=== PATIENT | male | born 2000 | race African-American/Black ===

== ENCOUNTER 2023-08-21 22:37 | Emergency (ER) | payer MEDICAID ==
[~2023-08-21] VITALS: Ht 182.9 cm; Wt 70.0 kg
[2023-08-21 22:47] VITALS: BP 145/99; PULSE 98; RESP 16; TEMP 98.2; O2SAT 98
== END 2023-08-21 23:44 | disposition home or self-care (01) ==
LOC: ER 22:37
DX: F22 Delusional disorders (principal)
CPT/HCPCS: 99283

== ENCOUNTER 2023-09-11 03:20 | Emergency (ER) | payer MEDICAID ==
[~2023-09-11] VITALS: Ht 182.9 cm; Wt 73.0 kg
[2023-09-11 03:25] VITALS: O2SAT 100
[2023-09-11] MEDS ORDERED: OLANZAPINE 5MG TABLET PO SCH (04:45)
[2023-09-11] MEDS ORDERED: LORAZEPAM 1MG TABLET PO ONE (04:45)
[2023-09-11 04:49] LABS: CLARITY URINE CLEAR (CLEAR); COLOR URINE DARK YELLOW (YELLOW); GLUCOSE URINE NEGATIVE (NEGATIVE); KETONES URINE 1+ (NEGATIVE); LEUKOCYTE ESTERASE URINE NEGATIVE (NEGATIVE); NITRITE URINE NEGATIVE (NEGATIVE); OCCULT BLOOD URINE NEGATIVE (NEGATIVE); PROTEIN URINE TRACE (NEGATIVE); SPECIFIC GRAVITY URINE 1.029 (1.005-1.030)
[2023-09-11 04:57] LABS: *AMPHETAMINES SCREEN URINE NEGATIVE (NEGATIVE); *BARBITURATES SCREEN URINE NEGATIVE (NEGATIVE); *BENZODIAZEPINES SCREEN URINE NEGATIVE (NEGATIVE); *COCAINE SCREEN URINE PRESUMPTIVE POSITIVE (NEGATIVE); CANNABINOID URINE SCREEN PRESUMPTIVE POSITIVE (NEGATIVE); ECSTASY MDMA SCREEN URINE NEGATIVE (NEGATIVE); METHADONE URINE SCREEN Neg (NEGATIVE); OPIATES URINE SCREEN NEGATIVE (NEGATIVE); PHENCYCLIDINE URINE SCREEN NEGATIVE (NEGATIVE)
[2023-09-11 05:15] LABS: BASOPHILS % 0.3 % (0.0-2.0); HEMATOCRIT. 44.6 % (42.0-52.0); HEMOGLOBIN. 14.9 g/dL (14.0-18.0); LYMPHOCYTES % 14.9 % (20.0-50.0); MEAN CORPUSCULAR HEMOGLOBIN 32.2 pg (28.0-32.0); MEAN CORPUSCULAR HGB CONC 33.4 g/dL (31.0-37.0); MEAN CORPUSCULAR VOLUME 96.5 fL (80.0-94.0); MEAN PLATELET VOLUME 7.9 fl (7.4-10.4); MONOCYTES % 7.6 % (2.0-8.0); NEUTROPHILS % 76.2 % (40.0-76.0); PLATELET 228 x1000/uL (130-400); RED BLOOD CELL COUNT 4.62 mill/uL (4.7-6.1); RED CELL DISTRIBUTION WIDTH 12.9 % (11.6-14.6); WHITE BLOOD COUNT 5.8 x1000/uL (4.5-11.0)
[2023-09-11 05:43] LABS: ACETAMINOPHEN < 2 ug/mL (10-30); ALANINE AMINOTRANSFERASE 16 IU/L (10-49); ALBUMIN 4.8 g/dL (3.2-4.8); ASPARTATE AMINOTRANSFERASE 19 IU/L (<34); BILIRUBIN TOTAL 1.1 mg/dL (0.1-1.0); CALCIUM 9.6 mg/dL (8.7-10.4); CARBON DIOXIDE 26 mEq/L (21-32); CHLORIDE 106 mEq/L (98-107); CREATININE 0.9 mg/dL (0.6-1.3); GLUCOSE 98 mg/dL (70-105); POTASSIUM 4.1 mEq/L (3.5-5.1); PROTEIN TOTAL 7.8 g/dL (6.0-8.3); SODIUM 138 mEq/L (136-145); UREA NITROGEN BLOOD 7 mg/dL (9-23)
[2023-09-11 05:46] LABS: AMMONIA <10 uMol/L (<32)
[2023-09-11 06:01] LABS: ETHANOL BLOOD < 10 mg/dL (<10)
[2023-09-11 06:01] LABS: BACTERIA URINE 1+; RBC URINE NONE SEEN /hpf (0-2); SQUAMOUS EPITHELIAL CELL URINE FEW /lpf (RARE/1+); WBC URINE NONE SEEN /hpf (0-2)
[2023-09-11 06:02] LABS: CALCIUM OXALATE CRYSTALS URINE 1+ /lpf; MUCUS URINE 1+ /lpf (NONE/TRACE)
[2023-09-11 09:30] VITALS: BP 122/80; PULSE 84; RESP 18; TEMP 98.3
== END 2023-09-11 09:30 | disposition home or self-care (01) ==
LOC: ER 03:48
DX: F14.90 Cocaine use, unspecified, uncomplicated (principal); Z20.822 Contact with and (suspected) exposure to COVID-19; Z86.59 Personal history of other mental and behavioral disorders; Z98.890 Other specified postprocedural states; Z00.00 Encounter for general adult medical examination without abnormal findings
CPT/HCPCS: 80053; 80305; 81003; 80307; 80329; 80320; 82140; 85025; 36415; 99283; 87426; C9803; Z7610; G0480